=== PATIENT | male | born 1945 | race Caucasian/White ===

== ENCOUNTER → 2019-03-05 | Outpatient (CLI) | payer MEDICARE, OTHER ==
[2014-10-16 05:20] VITALS: BP 138/96
[~2019-03-05] MED LIST: AMOX1TAB61 PO; HYDR115S2 PO
== END | disposition home or self-care (01) ==
LOC: LAB 09:04
PROVIDERS: ATTEND Internal Medicine Cardiovascular Disease
DX: E78.5 Hyperlipidemia, unspecified (principal)
CPT/HCPCS: 80061

== ENCOUNTER → 2019-04-08 | Outpatient (CLI) | payer MEDICARE, OTHER ==
[2014-10-16 05:20] VITALS: BP 138/96
--- NOTE | 2019-04-08 16:01 | CARD ---
MR#: [id number] Date of Study: 04/08/2019 Ordering Physician: JOHNATHAN PHILLIPS, Referring Physician: JOHNATHAN PHILLIPS, Tech: Kimi Molina KALYN APPROVED REPORT EXAM: Two-dimensional and M-mode echocardiogram with Doppler and color Doppler. Other Information Quality : Good INDICATION Cardiac Disease: CAD Surgery/Intervention CABG: Date: 2011 2D DIMENSIONS RVDd3.6 (2.9-3.5cm)Left Atrium(2D)5.3 (1.6-4.0cm) IVSd1.2 (0.7-1.1cm)Aortic Root(2D)3.2 (2.0-3.7cm) LVDd4.8 (3.9-5.9cm)LVOT Diameter2.1 (1.8-2.4cm) PWd1.2 (0.7-1.1cm)LVDs3.3 (2.5-4.0cm) FS (%) 30.1 %SV60.6 ml LVEF(%)55.0 (>50%) Aortic Valve AoV Peak Javier.133.0cm/sAoV VTI29.1cm AO Peak GR.7.1mmHgLVOT Peak Javier.112.0cm/s LVOT VTI 26.01cmAO Mean GR.4mmHg TANA (VMAX)2.53yh9YWV (VTI)2.96cm2 Mitral Valve MV E Qpnwbyzx496.8cm/sMV DECEL AGBV100qq MV A Mmkhxowt41.4cm/sE/A Ratio2.2 Tricuspid Valve TR P. Nxryfvan006nk/sRAP OOJFPPXZ0zrCt TR Peak Gr.79hqDcCPFY66jjTu Pulmonary Vein S1 Qcqvragi99.6cm/sD2 Vczmhrvp09.9cm/s LEFT VENTRICLE The left ventricle is normal size. There is mild concentric left ventricular hypertrophy. The left ve ntricular systolic function is normal. The Ejection Fraction is 55-60%. There is normal LV segmental wall motion. Transmitral Doppler flow pattern is Grade II-pseudonormal filling dynamics. RIGHT VENTRICLE The right ventricle is normal size. The right ventricular systolic function is normal. ATRIA The left atrium is moderately dilated. The right atrium is mildly dilated. The interatrial septum is intact with no evidence for an atrial septal defect or patent foramen ovale as noted on 2-D or Dopple r imaging. AORTIC VALVE The aortic valve is calcified but opens well. Doppler and Color Flow revealed trace aortic regurgitat ion. There is no significant aortic valvular stenosis. MITRAL VALVE The mitral valve is mildly thickened but opens well. There is no evidence of mitral valve prolapse. T here is no mitral valve stenosis. Doppler and Color-flow revealed mild mitral regurgitation. TRICUSPID VALVE The tricuspid valve is normal in structure and function. Doppler and Color Flow revealed trace to mil d tricuspid regurgitation. There is moderate pulmonary hypertension. The PA pressure was estimated at 48 mmHg. There is no tricuspid valve stenosis. PULMONIC VALVE The pulmonary valve is normal in structure and function. Doppler and Color Flow revealed mild pulmoni c valvular regurgitation. There is no pulmonic valvular stenosis. GREAT VESSELS The aortic root is normal in size. The ascending aorta is normal in size. The IVC is normal in size a nd collapses >50% with inspiration. PERICARDIAL EFFUSION There is no evidence of significant pericardial effusion. Critical Notification Critical Value: No <Conclusion> The left ventricular systolic function is normal. The Ejection Fraction is 55-60%. There is normal LV segmental wall motion. The left atrium is moderately dilated. Mild mitral regurgitation. Trace to mild tricuspid regurgitation. The PA pressure was estimated at 48 mmHg. There is no evidence of significant pericardial effusion. Signed by : Joseph Richardson, Electronically Approved : 04/08/2019 16:00:12
--- NOTE | 2019-04-09 11:07 | RAD ---
MR#: [id number] Date of Study: 04/08/2019 Ordering Physician: JOHNATHAN PHILLIPS, Referring Physician: JOHNATHAN PHILLIPS, Tech: Priya Gallo, RACHAEL, RVT, RTR APPROVED REPORT Patient Location: OUT-PATIENT Laterality:Bilateral Indications Grayscale images of the right common carotid, external and internal carotid vessels reveals moderate plaque at the level of the carotid bulb. Spectral images and velocities are within normal limits over all suggestive 0 to less than 50% stenosis by velocity criteria. Normal ICA to CCA ratios are noted. There is likely greater than 50% stenosis involving the right external carotid artery based on veloci ty criteria. On the left there is no significant plaque noted. The velocities are within normal limits. Overall 0 to less than 50% stenosis. Critical Notification Critical Value: No <Conclusion> 1. No significant bilateral internal carotid disease. 2. Normal vertebral velocities. Signed by : Johnathan Phillips, Electronically Approved : 04/09/2019 11:07:11
== END | disposition home or self-care (01) ==
LOC: US 08:33
PROVIDERS: ATTEND Internal Medicine Cardiovascular Disease
DX: I08.8 Other rheumatic multiple valve diseases (principal); I27.20 Pulmonary hypertension, unspecified; I25.10 Atherosclerotic heart disease of native coronary artery without angina pectoris; I65.23 Occlusion and stenosis of bilateral carotid arteries
CPT/HCPCS: 93306; 93880

== ENCOUNTER 2019-07-20 07:09 | Inpatient (IN) | payer MEDICARE, OTHER ==
[~2019-07-20] VITALS: Ht 175.3 cm; Wt 93.1 kg
[2019-07-20] MEDS ORDERED: IV NORMAL SALINE 1,000ML 1,000 ML IV ONE (07:15)
[2019-07-20] MEDS ORDERED: ONDANSETRON PF 4 MG/2 ML VIAL. IV ONE (07:15)
[2019-07-20] MEDS ORDERED: MECLIZINE 12.5 MG TABLET. PO STA (07:15)
--- NOTE | 2019-07-20 07:23 | EKG ---
[address] [address] Test Date: 2019-07-20 Test Time: 07:20:45 Pat Name: RALF DUMONT Department: Room: Gender: M [employer] Operator: : 1945 Requested By: GOVIND STOUT Order Number: [id number] Reading MD: Measurements Intervals [place] Rate: 90 P: [place]: QRS: 39 QRSD: 100 T: 82 QT: 394 QTc: 486 Interpretive Statements IRREGULAR RHYTHM, NO P-WAVE FOUND QRS(T) CONTOUR ABNORMALITY CONSIDER ANTEROLATERAL MYOCARDIAL DAMAGE CONSIDER INFERIOR MYOCARDIAL DAMAGE PROLONGED QT POSSIBLY ABNORMAL ECG RI6.01 No previous ECG available for comparison
--- NOTE | 2019-07-20 08:03 | RAD ---
CT HEAD WO CONTRAST History: Dizziness. Headache. Comparison: None. Technique: Noncontrast CT imaging was performed of the head. Exposure: One or more of the following individualized dose reduction techniques were utilized for this examination: 1. Automated exposure control 2. Adjustment of the mA and/or kV according to patient size 3. Use of iterative reconstruction technique. Findings: No intracranial hemorrhage. No mass effect. No hydrocephalus. Mild brain parenchymal volume loss. Foci of decreased attenuation within the hemispheric white matter, most often due to chronic microvascular ischemia. Imaged orbits are unremarkable. Imaged paranasal sinuses and mastoid air cells are clear. Bilateral TMJ arthropathy. Impression: 1. No acute intracranial abnormality. 2. Brain parenchymal volume loss and sequela chronic microvascular ischemia. Electronically signed by: Abdifatah Mejia DO (07/20/2019 8:01 AM) [facility]
[2019-07-20 08:17] LABS: BASO % 1 % (0-3); EOS # 0.1 x10^3/uL (0.0-0.7); EOS % 1 % (0-3); HEMATOCRIT 41.6 % (39.0-53.0); HEMOGLOBIN 13.8 g/dL (13.0-17.5); LYMPH # 0.8 x10^3/uL (1.0-4.8); LYMPH % 11 % (24-48); MEAN CORPUSCULAR HEMOGLOBIN 31 pg (25-35); MEAN CORPUSCULAR HGB CONC 33 g/dL (31-37); MEAN CORPUSCULAR VOLUME 94 fL (79-100); MONO # 0.6 x10^3/uL (0.0-1.1); MONO % 8 % (0-9); NEUT % 80 % (31-73); PLATELET COUNT 174 x10^3/uL (140-400); RED BLOOD COUNT 4.42 x10^6/uL (4.30-5.70); RED CELL DISTRIBUTION WIDTH 14.8 % (11.5-14.5); WHITE BLOOD COUNT 7.5 x10^3/uL (4.0-11.0)
[2019-07-20 08:31] LABS: ALBUMIN 3.4 g/dL (3.4-5.0); CALCIUM 8.2 mg/dL (8.5-10.1); CREATININE 1.2 mg/dL (0.7-1.3); POTASSIUM 3.7 mmol/L (3.5-5.1); TOTAL PROTEIN 6.9 g/dL (6.4-8.2)
[2019-07-20] MEDS: IV NORMAL SALINE 1,000ML 1,000 ML IV SCH ×2 (09:17→22:03)
[2019-07-20] MEDS ORDERED: LOSA50TA86 PO (10:33)
[2019-07-20] MEDS ORDERED: UBID10CA5 PO (10:33)
[2019-07-20] MEDS ORDERED: METO50TA29 PO (10:33)
[2019-07-20] MEDS ORDERED: TAMS0.4C97 PO (10:33)
[2019-07-20] MEDS ORDERED: APIX2.5T PO (10:33)
[2019-07-20] MEDS ORDERED: DRON400T PO (10:33)
[2019-07-20] MEDS ORDERED: METF10007 PO (10:33)
--- NOTE | 2019-07-20 10:54 | NUR ---
NURSING NOTE: PATIENT ADMITTED TO [facility] ROOM 125 WITH DX OF VERTIGO ALONG WITH NAUSEA AND VOMITING. PATIENT ORIENTED TO ROOM AND UNIT ROUTINES. VISITING WITH FAMILY AT THIS TIME.
--- NOTE | 2019-07-20 11:05 | PHYS DOC ---
Past History Past Medical History: A-Fib, Diabetes, Heart Disease, Hypertension Past Surgical History: Coronary Bypass Surgery Alcohol Use: Occasionally Drug Use: None Adult General Chief Complaint Chief Complaint: DIZZY/LIGHT HEADED HPI HPI Patient is a 74 yo m p/w dizziness brought in by ambulance. Has had dizziness described as the room spinning since yesterday. He got a little bit better took a medication for nausea however then he was throwing up all last night denies any chest pain or headache just feels really off balance when he walked no double vision earlier and legs feel normal speech is normal. Really has not ever had this before his left ear does feel full like he can't really hear out of it Review of Systems Review of Systems Constitutional: Denies fever or chills [] Eyes: Denies change in visual acuity, redness, or eye pain [] HENTleft ear feels clogged Respiratory: Denies cough or shortness of breath [] Musculoskeletal: Denies back pain or joint pain [] Integument: Denies rash or skin lesions [] All other systems were reviewed and found to be within normal limits, except as documented in this note. Current Medications Current Medications Current Medications Medications (Trade) Dose Ordered Sig/Christie Start Time Stop Time Status Last Admin Dose Admin Meclizine HCl (Antivert) 25 mg 1X STAT 07/20/19 07:15 07/20/19 07:18 DC 07/20/19 07:29 25 MG Ondansetron HCl (Zofran) 2 mg 1X ONCE 07/20/19 07:15 07/20/19 07:18 DC 07/20/19 07:29 2 MG Sodium Chloride 1,000 ml @ 1,000 mls/hr 1X ONCE 07/20/19 07:15 07/20/19 08:14 DC 07/20/19 07:29 1,000 MLS/HR Allergies Allergies Allergies Coded Allergies Type Severity Reaction Last Updated Verified No Known Drug Allergies 07/20/19 No Physical Exam Physical Exam Constitutional: Well developed, well nourished, no acute distress, non-toxic appearance. [] HENT: Normocephalic, atraumatic, bilateral external ears normal, oropharynx moist, no oral exudates, nose normal. [] Eyes: PERRLA, EOMI, conjunctiva normal, no discharge. [] ears look normal tms clear, maybe trace fluid behind left tm Neck: Normal range of motion, no tenderness, supple, no stridor. [] Cardiovascular:Heart rate regular rhythm, no murmur [] Lungs & Thorax: Bilateral breath sounds clear to auscultation [] Abdomen: Bowel sounds normal, soft, no tenderness, no masses, no pulsatile masses. [] Skin: Warm, dry, no erythema, no rash. [] Back: No tenderness, no CVA tenderness. [] Extremities: No tenderness, no cyanosis, no clubbing, ROM intact, no edema. [] Neurologic: Alert and oriented X 3, normal motor function, normal sensory function, no focal deficits noted. [] fnf intact, gait ok but then after about ten steps has wave of vertigo nearly falls. no nystagmus. Psychologic: Affect normal, judgement normal, mood normal. [] Current Patient Data Vital Signs Vital Signs Date Time Temp Pulse Resp B/P (MAP) Pulse Ox O2 Delivery O2 Flow Rate FiO2 07/20/19 09:25 73 11 159/88 (111) 93 Room Air 07/20/19 07:13 98.0 Lab Results Laboratory Tests Test 07/20/19 08:01 White Blood Count 7.5 x10^3/uL (4.0-11.0) Red Blood Count 4.42 x10^6/uL (4.30-5.70) Hemoglobin 13.8 g/dL (13.0-17.5) Hematocrit 41.6 % (39.0-53.0) Mean Corpuscular Volume 94 fL (79-100) Mean Corpuscular Hemoglobin 31 pg (25-35) Mean Corpuscular Hemoglobin Concent 33 g/dL (31-37) Red Cell Distribution Width 14.8 % (11.5-14.5) H Platelet Count 174 x10^3/uL (140-400) Neutrophils (%) (Auto) 80 % (31-73) H Lymphocytes (%) (Auto) 11 % (24-48) L Monocytes (%) (Auto) 8 % (0-9) Eosinophils (%) (Auto) 1 % (0-3) Basophils (%) (Auto) 1 % (0-3) Neutrophils # (Auto) 6.0 x10^3uL (1.8-7.7) Lymphocytes # (Auto) 0.8 x10^3/uL (1.0-4.8) L Monocytes # (Auto) 0.6 x10^3/uL (0.0-1.1) Eosinophils # (Auto) 0.1 x10^3/uL (0.0-0.7) Basophils # (Auto) 0.0 x10^3/uL (0.0-0.2) Prothrombin Time 12.1 SEC (9.4-11.4) H Prothrombin Time INR 1.2 (0.9-1.1) H Sodium Level 140 mmol/L (136-145) Potassium Level 3.7 mmol/L (3.5-5.1) Chloride Level 106 mmol/L (98-107) Carbon Dioxide Level 22 mmol/L (21-32) Anion Gap 12 (6-14) Blood Urea Nitrogen 20 mg/dL (8-26) Creatinine 1.2 mg/dL (0.7-1.3) Estimated GFR (Cockcroft-Gault) 59.0 BUN/Creatinine Ratio 17 (6-20) Glucose Level 165 mg/dL (70-99) H Calcium Level 8.2 mg/dL (8.5-10.1) L Total Bilirubin 1.0 mg/dL (0.2-1.0) Aspartate Amino Transferase (AST) 20 U/L (15-37) Alanine Aminotransferase (ALT) 22 U/L (16-63) Alkaline Phosphatase 40 U/L (46-116) L Troponin I Quantitative 0.032 ng/mL (0-0.055) Total Protein 6.9 g/dL (6.4-8.2) Albumin 3.4 g/dL (3.4-5.0) Albumin/Globulin Ratio 1.0 (1.0-1.7) EKG EKG afib no ischemia intervals look ok otherwise no stemi[] Radiology/Procedures Radiology/Procedures [] Impressions: Technique: Noncontrast CT imaging was performed of the head. Exposure: One or more of the following individualized dose reduction techniques were utilized for this examination: 1. Automated exposure control 2. Adjustment of the mA and/or kV according to patient size 3. Use of iterative reconstruction technique. Findings: No intracranial hemorrhage. No mass effect. No hydrocephalus. Mild brain parenchymal volume loss. Foci of decreased attenuation within the hemispheric white matter, most often due to chronic microvascular ischemia. Imaged orbits are unremarkable. Imaged paranasal sinuses and mastoid air cells are clear. Bilateral TMJ arthropathy. Impression: 1. No acute intracranial abnormality. 2. Brain parenchymal volume loss and sequela chronic microvascular ischemia. Electronically signed by: Abdifatah Mejia DO (07/20/2019 8:01 AM) [facility] Course & Med Decision Making Course & Med Decision Making Pertinent Labs and Imaging studies reviewed. (See chart for details) []74-year-old male presenting with chief complaint of vertigo history of A. fib on Ed[place] Deisy check head CT negative acute for intracranial hemorrhage no objective signs of posterior fossa abnormality on the clinical examination we treated the patient symptomatically he was feeling better than when he came in but he was still too unsteady on his feet to go home based on my assessment as well as discussion with the daughter. Agreeable to admission discussed with sangita for admit Damon Disclaimer Dragon Disclaimer This electronic medical record was generated, in whole or in part, using a voice recognition dictation system. Departure Departure: Impression: Primary Impression: Vertigo Additional Impression: Dizziness Disposition: ADMITTED INPATIENT Condition: STABLE Referrals: PEDRO MERCEDES MD (PCP) Problem Qualifiers GOVIND STOUT MD Jul 20, 2019 11:05
[2019-07-20 13:30] VITALS: BP 193/105
--- NOTE | 2019-07-20 13:30 | HP ---
ADMIT DATE: 07/20/2019 HISTORY OF PRESENT ILLNESS: The patient is a 74-year-old male patient who came to the Emergency Room complaining of being dizzy and lightheaded. He was actually brought to the Emergency Room by ambulance. He had dizziness described as room spinning since yesterday. He got a little bit better, took a medication for nausea; however, then he was throwing up all last night. Denied any chest pain, headache. Denied any dizziness or lightheadedness. Denied any tingling, numbness or weakness. Denied any double vision. Denied any difficulty walking. He stated that [place] almost [place] and half, but has never had any experience of motion sickness. He feels that his ear does feel full like, he cannot really hear out of it. He was extensively investigated in the Emergency Room. His EKG showed that while he was in sinus rhythm, CT scan of the head without contrast showed that he has no intracranial hemorrhage, no mass effect, no hydrocephalus has mild brain parenchymal volume loss, foci of decreased attenuation within the hemispheric white matter, most of due to chronic microvascular ischemia. Images of the orbits are unremarkable. Images of paranasal sinuses and mastoid air cells are clear. Bilateral temporomandibular joint arthropathy. His lab work was essentially unremarkable and the patient was admitted for further evaluation and treatment and to consult the neurologist. PAST MEDICAL HISTORY: Significant for hypertension and diabetes. He has also atrial fibrillation, rate controlled. He has benign prostatic hypertrophy, prostate cancer and immature cataract. PAST SURGICAL HISTORY: Significant for coronary artery bypass graft surgery in 2012. He has esophagogastroduodenoscopy and colonoscopy. ALLERGIES: He has no known drug allergies. MEDICATIONS: He is currently on tamsulosin 0.4 mg at bedtime, apixaban 2.5 mg twice a day, Multaq 1 tablet twice a day, metoprolol succinate 50 mg daily, losartan potassium 50 mg daily, metformin 1000 mg twice a day, CoQ10 10 mg p.o. daily. FAMILY HISTORY: He has 1 older brother who is alive, has bilateral total knee arthroplasties. His father at the age of 85 because of myocardial infarction. Mother at the age of 88 because of dementia. SOCIAL HISTORY: He is and lives alone. Quit smoking in 1984. Drinks wine. Does not use any drugs. He has one daughter and one son. He is retired from and also as a civilian contractor. REVIEW OF SYSTEMS: The patient denied any blurring of vision. He does have cataract that is immature. Denied any glaucoma or macular degeneration. Denied any earache. He does have tinnitus, but no sensorineural deafness. Denied any nosebleeds, stuffy nose or postnasal drip. Denied any sore throat, sore tongue, toothache, hoarseness of voice, difficulty swallowing. He did have multiple episodes of nausea, vomiting, but denied any hematemesis, melena or hematochezia. Denied any dysuria, frequency or hematuria. Denied any chest pain, shortness of breath, orthopnea, paroxysmal nocturnal dyspnea. Denied any cough, phlegm or hemoptysis. Denied any chills, rigors or fever. Did complain of dizziness and lightheadedness. PHYSICAL EXAMINATION: GENERAL: On examining him, he was resting slightly propped up in bed, in no apparent respiratory distress. No pallor, jaundice, cyanosis, or thyromegaly. No jugular venous distension. No limb edema. VITAL SIGNS: His heart rate was 89, blood pressure was 176/112, temperature was 98, respiratory rate was 23, and oxygen saturation was 94%. HEAD, EYES, EARS, NOSE AND THROAT: Showed normocephalic, atraumatic. NECK: Supple. HEART: Showed normal first and second heart sounds. No gallop or murmur. CHEST: Shows central trachea, equal bilateral expansion, air entry, vesicular breath sounds. No crepitation or rhonchi. ABDOMEN: Distended, soft, nontender. NEUROLOGIC: He was awake, alert, responding appropriately. All his cranial nerves are intact. I could not elicit any nystagmus or diplopia. EXTREMITIES: He moves extremities without difficulty. I could not elicit any cerebellar dysfunction, although I did not do a Romberg's test and as he was somewhat dizzy. LABORATORY DATA: His lab work in the Emergency Room showed that his white cell count was 7500, hemoglobin 13.8, hematocrit 41.6, MCV 94 and platelet count of 174,000 with normal manual differential. His chemistry showed a serum sodium 140, potassium 3.7, chloride 106, bicarbonate 22, anion gap of 12, BUN 20, creatinine 1.2, estimated GFR was 59 mL per minute, his glucose 165, calcium was 8.2. Total bilirubin, AST, ALT, alkaline phosphatase were normal. Troponin was 0.032. Total protein was 6.9, albumin was 3.4. His prothrombin time was 12.1, INR of 1.2. The CT scan of the head showed that there is no acute intracranial abnormality, no mass effect or hydrocephalus. He has mild brain parenchymal volume loss, foci of decreased attenuation within the hemispheric white matter, most often due to chronic microvascular ischemia. Imaged orbits and paranasal sinuses as well as mastoid cells are clear. He has bilateral temporomandibular joint arthropathy. Plan is to obviously continue all his medications and we will arrange for him to have orthostatics and start him on meclizine and consult the neurologist. His troponin was slightly elevated, so I will do 2 more sets of cardiac enzymes and consult also the systems technologist. NELI CONTRERAS MD DR: ALEJANDRO/ana JOB#: [id number] / [id number]
[2019-07-20 13:33] VITALS: BP 193/102
[2019-07-20 13:34] VITALS: BP 182/101
[2019-07-20] MEDS: ONDANSETRON PF 4 MG/2 ML VIAL. IV PRN ×2 (13:43→18:42)
[2019-07-20] MEDS: LOSARTAN 50 MG TABLET. PO SCH (14:10)
[2019-07-20] MEDS: METOPROLOL SUCC 24HR ER 50 MG TAB.ER.24H. PO SCH (14:10)
[2019-07-20 16:39] VITALS: BP 185/95
[2019-07-20] MEDS: metFORMIN 500 MG TABLET PO SCH (17:40)
[2019-07-20 17:56] LABS: BILIRUBIN,URINE NEG (NEG); CLARITY,URINE CLEAR; COLOR,URINE YELLOW; GLUCOSE,URINE 100 mg/dL (NEG)
[2019-07-20 17:57] LABS: BACTERIA,URINE 0 /HPF (0-FEW); NITRITE,URINE NEG (NEG); RBC,URINE 0 /HPF (0-2); SQUAMOUS EPITHELIAL CELL,UR OCC /LPF; UROBILINOGEN,URINE 0.2 mg/dL (0.2 mg/dL); WBC,URINE OCC /HPF (0-4)
[2019-07-20 18:20] VITALS: BP 167/101
[2019-07-20] MEDS: MECLIZINE 12.5 MG TABLET. PO PRN ×2 (18:36→21:06)
[2019-07-20] MEDS: ACETAMINOPHEN 325 MG TABLET PO PRN (18:36)
[2019-07-20] MEDS: DRONEDARONE HCL 400 MG TABLET PO SCH (21:06)
[2019-07-20] MEDS: APIXABAN 2.5 MG TABLET PO SCH (21:06)
--- NOTE | 2019-07-20 21:11 | PDOC2 ---
CONSULT Date of Admission DATE: 07/20/19 TIME: 21:10 Reason for Consult: Atrial fibrillation Referring Physician: Dr. Sommers Chief Complaint Dizziness Source: Chart review, Patient Problem List Problems Medical Problems: (1) Dizziness Status: Acute (2) Vertigo Status: Acute History of Present Illness 74-year-old male presented complaining of dizziness that he described as room spinning since yesterday. He also complained of associated nausea and vomiting and intermittent episodes of palpitations. He denied any chest pain, orthopnea/PND or syncope. He has history of persistent atrial fibrillation and coronary artery disease and has been scheduled for [facility] guided cardioversion next week. Past Medical History Coronary artery disease s/p CABG Atrial fibrillation Hypertension Diabetes mellitus type 2 BPH Prostate cancer Past Surgical History Coronary artery bypass surgery in 2011 Family History Hypertension and coronary artery disease Social History Quit smoking in 1984, admitted to occasional intake of alcohol and denied any drug abuse Current Medications Current Medications Sodium Chloride 1,000 ml @ 1,000 mls/hr 1X ONCE IV Last administered on 07/20/19at 07:29; Start 07/20/19 at 07:15; Stop 07/20/19 at 08:14; Status DC Ondansetron HCl (Zofran) 2 mg 1X ONCE IV Last administered on 07/20/19at 07:29; Start 07/20/19 at 07:15; Stop 07/20/19 at 07:18; Status DC Meclizine HCl (Antivert) 25 mg 1X STAT PO Last administered on 07/20/19at 07:29; Start 07/20/19 at 07:15; Stop 07/20/19 at 07:18; Status DC Ondansetron HCl (Zofran) 4 mg PRN Q4HRS PRN IV NAUSEA/VOMITING Last administered on 07/20/19at 18:43; Start 07/20/19 at 09:30; Stop 07/21/19 at 09:29 Sodium Chloride 1,000 ml @ 75 mls/hr [id number] IV Last administered on 07/20/19at 09:24; Start 07/20/19 at 09:17; Stop 07/21/19 at 09:16 Apixaban (Eliquis) 2.5 mg BID PO Last administered on 07/20/19at 21:08; Start 07/20/19 at 21:00 Dronedarone (Multaq) 400 mg BID PO Last administered on 07/20/19at 21:08; Start 07/20/19 at 21:00 Losartan Potassium (Cozaar) 50 mg DAILY PO Last administered on 07/20/19at 14:10; Start 07/20/19 at 13:00 Metoprolol Succinate (Toprol Xl) 50 mg DAILY PO Last administered on 07/20/19at 14:10; Start 07/20/19 at 13:00 Tamsulosin HCl (Flomax) 0.4 mg DAILY PO ; Start 07/21/19 at 09:00 Metformin HCl (Glucophage) 500 mg BIDWMEALS PO Last administered on 07/20/19at 17:41; Start 07/20/19 at 17:00 Coenzyme Q10 (Coenzyme Q10) 50 mg DAILY PO ; Start 07/21/19 at 09:00 Meclizine HCl (Antivert) 25 mg PRN Q6HRS PRN PO DIZZINESS Last administered on 07/20/19at 21:08; Start 07/20/19 at 13:15 Acetaminophen (Tylenol) 650 mg PRN Q6HRS PRN PO PAIN Last administered on 07/20/19at 18:36; Start 07/20/19 at 18:30 Active Scripts Active Reported Metoprolol Succinate ( Xl ) (Metoprolol Succinate) 50 Mg Tab.er.24h 1 Tab PO DAILY Flomax (Tamsulosin Hcl) 0.4 Mg Cap.er.24h 1 Cap PO DAILY Eliquis (Apixaban) 2.5 Mg Tablet 2.5 Mg PO BID Multaq (Dronedarone Hcl) 400 Mg Tablet 1 Tab PO BID Co Q-10 (Ubidecarenone) 10 Mg Capsule 10 Mg PO DAILY Losartan Potassium (Losartan Potassium) 50 Mg Tablet 50 Mg PO DAILY Metformin Hcl 1,000 Mg Tablet 1 Tab PO BID Allergies: Coded Allergies: No Known Drug Allergies (Unverified , 07/20/19) PSYCHOLOGICAL ROS: No: Hallucinations Eyes: No: Loss of vision HEENT: No: Epistaxis Respiratory: No: Hemoptysis, Shortness of breath Cardiovascular: yes: Palpitations; No: Chest Pain Gastrointestinal: YES: Nausea, Vomiting Neurological: YES: Dizziness; No: Seizures Skin: No: Rash General: Alert, Oriented X3 HEENT: Atraumatic, PERRLA Lungs: Clear to auscultation Heart: Other (heart rate is irregular) Abdomen: Soft Extremities: No edema Psych/Mental Status: Mood NL VITALS Vital Signs Date Time Temp Pulse Resp B/P (MAP) Pulse Ox O2 Delivery O2 Flow Rate FiO2 07/20/19 21:08 67 167/101 07/20/19 18:20 97.9 18 94 Room Air Labs Laboratory Tests Test 07/20/19 08:01 07/20/19 13:14 07/20/19 14:19 07/20/19 16:42 White Blood Count 7.5 x10^3/uL (4.0-11.0) Red Blood Count 4.42 x10^6/uL (4.30-5.70) Hemoglobin 13.8 g/dL (13.0-17.5) Hematocrit 41.6 % (39.0-53.0) Mean Corpuscular Volume 94 fL (79-100) Mean Corpuscular Hemoglobin 31 pg (25-35) Mean Corpuscular Hemoglobin Concent 33 g/dL (31-37) Red Cell Distribution Width 14.8 % (11.5-14.5) Platelet Count 174 x10^3/uL (140-400) Neutrophils (%) (Auto) 80 % (31-73) Lymphocytes (%) (Auto) 11 % (24-48) Monocytes (%) (Auto) 8 % (0-9) Eosinophils (%) (Auto) 1 % (0-3) Basophils (%) (Auto) 1 % (0-3) Neutrophils # (Auto) 6.0 x10^3uL (1.8-7.7) Lymphocytes # (Auto) 0.8 x10^3/uL (1.0-4.8) Monocytes # (Auto) 0.6 x10^3/uL (0.0-1.1) Eosinophils # (Auto) 0.1 x10^3/uL (0.0-0.7) Basophils # (Auto) 0.0 x10^3/uL (0.0-0.2) Prothrombin Time 12.1 SEC (9.4-11.4) Prothromb Time International Ratio 1.2 (0.9-1.1) Sodium Level 140 mmol/L (136-145) Potassium Level 3.7 mmol/L (3.5-5.1) Chloride Level 106 mmol/L (98-107) Carbon Dioxide Level 22 mmol/L (21-32) Anion Gap 12 (6-14) Blood Urea Nitrogen 20 mg/dL (8-26) Creatinine 1.2 mg/dL (0.7-1.3) Estimated GFR (Cockcroft-Gault) 59.0 BUN/Creatinine Ratio 17 (6-20) Glucose Level 165 mg/dL (70-99) Calcium Level 8.2 mg/dL (8.5-10.1) Total Bilirubin 1.0 mg/dL (0.2-1.0) Aspartate Amino Transf (AST/SGOT) 20 U/L (15-37) Alanine Aminotransferase (ALT/SGPT) 22 U/L (16-63) Alkaline Phosphatase 40 U/L (46-116) Troponin I Quantitative 0.032 ng/mL (0-0.055) 0.018 ng/mL (0-0.055) 0.019 ng/mL (0-0.055) Total Protein 6.9 g/dL (6.4-8.2) Albumin 3.4 g/dL (3.4-5.0) Albumin/Globulin Ratio 1.0 (1.0-1.7) Urine Collection Type Unknown Urine Color Yellow Urine Clarity Clear Urine pH 5.5 Urine Specific Drumore 1.025 Urine Protein Neg (NEG-TRACE) Urine Glucose (UA) 100 mg/dL (NEG) Urine Ketones (Stick) 15 mg/dL (NEG) Urine Blood Neg (NEG) Urine Nitrite Neg (NEG) Urine Bilirubin Neg (NEG) Urine Urobilinogen Dipstick 0.2 mg/dL (0.2 mg/dL) Urine Leukocyte Esterase Neg (NEG) Urine RBC 0 /HPF (0-2) Urine WBC Occ /HPF (0-4) Urine Squamous Epithelial Cells Occ /LPF Urine Bacteria 0 /HPF (0-FEW) Urine Mucus Slight /LPF Assessment/Plan 1. Dizziness, nausea and vomiting consistent with vertigo. Continue current management per IM 2. Persistent atrial fibrillation, rate well-controlled. Recent 2-D echo showed LVEF 55-60%. Continue current medications including eliquis and multaq. He is currently scheduled for [facility] guided cardioversion by. 3. Coronary artery disease s/p CABG, clinically stable and chest pain-free. BNP level slightly elevated but patient does not have any overt signs of CHF. Continue current secondary prevention measures. 4. Accelerated hypertension: Resume home medications and titrate for better control Thank you for your consultation DARREN PHILLIPS MD Jul 20, 2019 21:11
[2019-07-20 22:24] VITALS: BP 188/102
[2019-07-20] MEDS ORDERED: amLODIPine BESYLATE 5 MG TABLET PO ONE (22:30)
[2019-07-21 02:32] VITALS: BP 160/75
--- NOTE | 2019-07-21 06:14 | CONS ---
DATE OF CONSULTATION: NEUROLOGY CONSULT REFERRING PHYSICIAN: Dr. Sommers. REASON FOR CONSULTATION: Severe dizziness. HISTORY OF PRESENT ILLNESS: This is a 74-year-old right-handed very pleasant male who was admitted through Emergency Room after he presented with 1-day history of frequent dizzy spell described as "spinning." The dizzy spells usually aggravated by changing body positions quickly as standing up from sitting to standing positions or by turning his head quickly to any directions. The patient stated his dizzy spell started one day prior to this admission and associated with nausea. He denies vomiting, chest pain, shortness of breath or palpitation, dysarthria, dysphagia, weakness or paresthesia; however, he complains of intermittent pain confined to the right shoulder and sometimes associated with strange feeling into the forearms. He denies visual disturbances, weakness of the lower extremities, bowel or bladder dysfunctions. The patient denies any recent head injuries or fall or changes of his mental status. Initial nonenhanced head CT scan revealed no evidence of acute intracranial process, but shows chronic small vessel ischemic changes with generalized atrophy. PAST MEDICAL HISTORY: Quite significant for ventricular rate controlled atrial fibrillation, benign prostate hypertrophy, hypertension, diabetes mellitus type 2, long history of weakness of the right eyelid and history of right cornea damage and cataract. There is history of prostate cancer as well, hearing loss on the left side. PAST SURGICAL HISTORY: Significant for coronary artery bypass graft in 2011. SOCIAL HISTORY: The patient is . He lives by himself. He denies smoking and he quit many years ago. He drinks wine, but he denies illegal drug use. He has 1 son and 1 daughter. He retired from . CURRENT HOME MEDICATIONS: Coenzyme Q10, Flomax 0.4 mg daily, Multaq 400 mg twice daily, Eliquis 2.5 mg twice daily, Tylenol 650 mg q. 6 hours p.r.n. for pain, metformin 500 mg b.i.d., metoprolol XL 50 mg daily, losartan 50 mg daily and current hospital medications, meclizine 25 mg q. 6 hours p.r.n. and Zofran 4 mg IV q. 4 hours p.r.n. for nausea and vomiting. ALLERGIES: No known drug allergies. REVIEW OF SYSTEMS: A 10-point review of system was performed as mentioned above in history of present illness. However, the patient did complain of strange feeling in the left ear. PHYSICAL EXAMINATION: GENERAL: Well-developed, well-nourished male, not in acute distress. He weighs 90.8 kilos. VITAL SIGNS: Blood pressure 167/101, respiratory rate 18, pulse 67 and regular, temperature 97.9, oxygen saturation 94% on room air. HEENT: Normocephalic, atraumatic, otherwise unremarkable. NECK: Supple. Negative for carotid bruit, lymphadenopathy, thyromegaly or JVD. LUNGS: Clear to A and P. CARDIOVASCULAR: Regular rhythm, normal S1, S2. ABDOMEN: Soft. Bowel sounds positive. EXTREMITIES: Negative for cyanosis, clubbing or edema. NEUROLOGICAL EXAM: Mental Status: The patient is alert and oriented x 3. Speech is fluent. There is no language dysfunction. Memory, judgment, and abstracting thinking are normal. The patient denies hallucination or delusion. CRANIAL NERVES: Visual guerrero are full. The pupils are reactive to light and accommodation. The extraocular movements are intact. There is no nystagmus. There is no facial motor or sensory deficit. Diminished hearing on the left side compared to that on the right side. The palate is elevated symmetrically. Sternocleidomastoid muscles are powerful bilaterally. The patient shrugs his shoulders symmetrically, protrudes his tongue in the midline without fasciculation or atrophy. There is a weakness of the right upper eyelid compared to that on the left side. NEUROLOGIC: Motor examination: No focal muscle bulk was seen. The tone is normal. The strength is 5/5 throughout. Sensory examination revealed normal pinprick, light touch, vibratory and position senses. Deep tendon reflexes were asymmetric and hypoactive with absent Achilles responses. Gait: Gait not tested as the patient has severe vertigo. LABORATORY DATA: CBC revealed white blood cells of 7.5 thousand, hemoglobin 13.8, hematocrit 41.6, platelet count 174,000. Chemistry revealed sodium of 140, potassium 3.7, chloride 106, CO2 of 22, BUN 20, creatinine 1.2, glucose 165, calcium 8.2 and liver enzymes are normal. Troponin level in the 3 sitting did not show any worsening of the number. Urinalysis is negative for urinary tract infections and EKG shows atrial fibrillation with controlled ventricular rate. DIAGNOSTIC DATA: A nonenhanced head CT scan as described above in the history of present illness consistent with chronic small vessel ischemic changes, otherwise unremarkable. IMPRESSION: 1. Acute onset of vertigo described as spinning aggravated by changing body positions or turning head quickly to any directions may represent paroxysmal benign positional vertigo versus vestibulopathy. 2. Multiple medical problems include coronary artery disease, status post coronary artery bypass graft and ongoing atrial fibrillation with controlled ventricular response, diabetes mellitus type 2, hypertension, left side hearing loss. RECOMMENDATIONS: 1. Physical therapy with vestibular exercise. 2. Continue with meclizine 25 mg p.r.n. for vertigo. 3. Continue with current management and care initiated by Dr. Sommers. M Zuleika FIGUEROA MD DR: LISA/ana JOB#: [id number] / [id number]
[2019-07-21 06:26] VITALS: BP 170/89
[2019-07-21] MEDS: metFORMIN 500 MG TABLET PO SCH ×2 (07:42→16:57)
[2019-07-21] MEDS: METOPROLOL SUCC 24HR ER 50 MG TAB.ER.24H. PO SCH (07:42)
[2019-07-21] MEDS: UBIDECARENONE 50 MG CAPSULE. PO SCH (07:42)
[2019-07-21] MEDS: APIXABAN 2.5 MG TABLET PO SCH ×2 (07:43→20:46)
[2019-07-21] MEDS: DRONEDARONE HCL 400 MG TABLET PO SCH ×2 (07:43→20:46)
[2019-07-21] MEDS: LOSARTAN 50 MG TABLET. PO SCH (07:46)
[2019-07-21] MEDS: TAMSULOSIN 0.4 MG CAP.ER.24H. PO SCH (09:45)
[2019-07-21] MEDS ORDERED: metFORMIN 500 MG TABLET PO ONE (09:45)
[2019-07-21] MEDS: ACETAMINOPHEN 325 MG TABLET PO PRN (11:15)
[2019-07-21 11:23] VITALS: BP 149/82
[2019-07-21 12:20] LABS: BASO # 0.1 x10^3/uL (0.0-0.2); BASO % 1 % (0-3); EOS # 0.1 x10^3/uL (0.0-0.7); EOS % 1 % (0-3); HEMATOCRIT 44.2 % (39.0-53.0); HEMOGLOBIN 14.6 g/dL (13.0-17.5); LYMPH # 0.8 x10^3/uL (1.0-4.8); LYMPH % 9 % (24-48); MEAN CORPUSCULAR HEMOGLOBIN 31 pg (25-35); MEAN CORPUSCULAR HGB CONC 33 g/dL (31-37); MEAN CORPUSCULAR VOLUME 95 fL (79-100); MONO # 0.6 x10^3/uL (0.0-1.1); MONO % 7 % (0-9); NEUT # 7.6 x10^3uL (1.8-7.7); NEUT % 83 % (31-73); PLATELET COUNT 174 x10^3/uL (140-400); RED BLOOD COUNT 4.66 x10^6/uL (4.30-5.70); RED CELL DISTRIBUTION WIDTH 14.6 % (11.5-14.5); WHITE BLOOD COUNT 9.2 x10^3/uL (4.0-11.0)
[2019-07-21 12:25] LABS: ALBUMIN 3.5 g/dL (3.4-5.0); CALCIUM 8.2 mg/dL (8.5-10.1); CREATININE 1.1 mg/dL (0.7-1.3); GFR 65.3; POTASSIUM 4.2 mmol/L (3.5-5.1); TOTAL BILIRUBIN 1.4 mg/dL (0.2-1.0); TOTAL PROTEIN 6.9 g/dL (6.4-8.2)
[2019-07-21 15:36] VITALS: BP 150/75
--- NOTE | 2019-07-21 16:54 | RAD ---
CHEST AP ONLY History: Shortness of breath. Comparison: October 16, 2014 Findings: Mild interstitial thickening and vascular engorgement. No pleural effusion. Portable technique accentuates cardiac size. Prior median sternotomy. No pneumothorax. Impression: 1. Bilateral interstitial thickening and vascular engorgement, may indicate early pulmonary edema. Electronically signed by: Abdifatah Mejia DO (07/21/2019 4:51 PM) [facility]
[2019-07-21 18:38] VITALS: BP 161/80
--- NOTE | 2019-07-21 22:14 | PN ---
DATE: 07/21/2019 SUBJECTIVE: The patient denies any new neurological complaints; however, he stated his dizzy spell has been less frequent and less intense, but when he stood up this morning, he felt short of breath and he has had a dry cough. He denies chest pain, nausea, vomiting, or diaphoresis. OBJECTIVE: GENERAL: Well-developed, well-nourished male in no acute distress. VITAL SIGNS: Blood pressure 170/87, respiratory rate 22, pulse is 84, oxygen saturation is 90% on 3 liters by nasal cannula. HEENT: Normocephalic, atraumatic, otherwise unremarkable. NECK: Supple. Negative for carotid bruit, lymphadenopathy or thyromegaly. LUNGS: Clear to A and P. No wheezing or rales. CARDIOVASCULAR: Irregularly irregular rhythm, normal S1, S2. ABDOMEN: Soft. Bowel sounds positive. EXTREMITIES: Negative for cyanosis, clubbing, or pitting edema. NEUROLOGICAL EXAM: Normal mental status and intact cranial nerves. There is no nystagmus except for hearing loss on the left side. Motor Examination: No focal motor or sensory deficit. Deep tendon reflexes were symmetric and hypoactive with absent Achilles responses. Gait not tested at this time. IMPRESSION: 1. Acute onset of dizziness, acute onset of vertigo, probably represent paroxysmal benign positional vertigo versus vestibulopathy. 2. Atrial fibrillation with controlled ventricular response. 3. Shortness of breath with dry cough. 4. Multiple medical problems include hypertension, hyperlipidemia, diabetes mellitus, coronary artery disease, status post coronary artery bypass graft. RECOMMENDATIONS: 1. Continue with current management initiated by Dr. Sommers. 2. Physical therapy and trial for vestibular exercise. 3. To obtain chest x-ray. M Zuleika FIGUEROA MD DR: LISA/ana JOB#: [id number] / [id number]
[2019-07-22 01:02] VITALS: BP 132/71
--- NOTE | 2019-07-22 05:18 | PN ---
DATE: 07/21/2019 SUBJECTIVE: The patient is resting, slightly propped up in bed, very sleepy and lethargic. The nursing staff said he was clammy and hypoxic; however, the patient himself denied any chest pain or shortness of breath. Denied any headache, has no more nausea. PHYSICAL EXAMINATION: GENERAL: When I examined him, he looked well and was clearly in no apparent respiratory distress. No pallor, jaundice, cyanosis, or thyromegaly. No jugular venous distension. No lower limb edema. VITAL SIGNS: His heart rate was 76, blood pressure is 149/82, temperature was 99.7, respiratory rate was 22 and oxygen saturation was 91% on 3 liters of oxygen by nasal cannula. HEAD, EYES, EARS, NOSE AND THROAT: Showed normocephalic, atraumatic. NECK: Supple. HEART: Showed normal first and second heart sounds with no gallop or murmur. CHEST: Shows central trachea, equal bilateral expansion, air entry, vesicular sounds with bilateral basal crepitation. I could not appreciate any rhonchi. ABDOMEN: Distended, soft, nontender. No guarding or rigidity. No organomegaly. All hernial orifices intact. Bowel sounds normal. NEUROLOGIC: He was somewhat lethargic, but arousable. All his cranial nerves are intact. He moves extremities without difficulty, although he is mostly bedbound. His intake over the last 24 hours was 3550, output was 1425. LABORATORY DATA: He has no lab work done this morning. He was evaluated by the wrecking supervisor as well as the neurologist. Dr. Jarvis felt that this is benign positional vertigo versus vestibuloplasty. PLAN: Given the change in his mental status and hypoxia, I will repeat all his lab work stat including CBC, CMP, BMP, D-dimer. Do a chest x-ray. I have consulted physical therapy. We will advance his diet and decide on further management accordingly. NELI CONTRERAS MD DR: ALEJANDRO/ana JOB#: [id number] / [id number]
[2019-07-22 05:36] VITALS: BP 154/83
[2019-07-22] MEDS: LOSARTAN 50 MG TABLET. PO SCH (08:35)
[2019-07-22] MEDS: metFORMIN 500 MG TABLET PO SCH (08:35)
[2019-07-22] MEDS: TAMSULOSIN 0.4 MG CAP.ER.24H. PO SCH (08:35)
[2019-07-22] MEDS: METOPROLOL SUCC 24HR ER 50 MG TAB.ER.24H. PO SCH (08:35)
[2019-07-22] MEDS: UBIDECARENONE 50 MG CAPSULE. PO SCH (08:36)
[2019-07-22] MEDS: APIXABAN 2.5 MG TABLET PO SCH (08:36)
[2019-07-22] MEDS: DRONEDARONE HCL 400 MG TABLET PO SCH (08:36)
[2019-07-22 11:00] VITALS: BP 144/82
[2019-07-22] MEDS ORDERED: FUROSEMIDE 20 MG/2 ML VIAL IVP ONE (13:30)
--- NOTE | 2019-07-22 14:54 | NUR ---
PT TRANSFERRED TO [facility] ROM 660 FOR MRI NEUROLOGY AND CARDIOLOGY. REPORT CALLED TO NURSE AT [facility]. ALL LABS AND REPORTS SENT WITH PT. PT IS STABLE AT TIME OF TRANSFER.
--- NOTE | 2019-07-22 23:35 | PN ---
DATE: SUBJECTIVE: The patient denies any new neurological complaints; however, he continues to have shortness of breath, but no chest pain or palpitation. The patient stated his dizziness has been less frequent and less intense. He is able to get up and walk without assistance and without dizziness as well. Chest x-ray from yesterday revealed evidence of bilateral interstitial thickening and possible indicate early pulmonary edema. OBJECTIVE: GENERAL: Well-developed, well-nourished male, not in acute distress. VITAL SIGNS: Blood pressure 145/83, respiratory rate 20, pulse is 79 and irregular, temperature 97.7, oxygen saturation is 93% on 3 liters by nasal cannula. HEENT: Normocephalic, atraumatic, otherwise unremarkable. I examined his left ear today and did not reveal any significant abnormalities. NECK: Supple. Negative for carotid bruit, lymphadenopathy, thyromegaly or JVD. LUNGS: Clear to A and P; however, there is a very mild palpitation on the bases. No rhonchi today. CARDIOVASCULAR: Regular rhythm. Normal S1, S2. ABDOMEN: Soft. Bowel sounds positive. EXTREMITIES: Negative for cyanosis, clubbing or pitting edema. NEUROLOGICAL EXAM: Normal mental status and intact cranial nerves except for left hearing loss. There is no nystagmus. No focal motor or sensory deficit. Deep tendon reflexes were symmetric and hypoactive with absent Achilles responses. Gait: The stance is more steady. IMPRESSION: 1. Acute vertigo -- improved, probably represent paroxysmal positional vertigo versus vestibulopathy. 2. Shortness of breath with abnormal chest x-ray. 3. Multiple medical problems include atrial fibrillation, hypertension, hyperlipidemia, diabetes mellitus, coronary artery disease status post coronary artery bypass graft. 4. Left hearing loss. RECOMMENDATIONS: 1. Continue with current medical care and neurological recommendations. 2. The patient needs to follow up with ENT and specialist and has hearing test. M Zuleika FIGUEROA MD DR: LISA/ana JOB#: [id number] / [id number]
--- NOTE | 2019-07-23 04:17 | DS ---
DATE OF DISCHARGE: 07/22/2019 HOSPITAL COURSE: The patient is a 74-year-old male patient who was admitted to the Emergency Room with a complaint of being dizzy and lightheaded. He was brought to the Emergency Room by ambulance. He had dizziness described as room spinning, since the day before admission, he got a little bit better, took medication for nausea; however, he was throwing up all the night before admission. Denied any chest pain, headache. Denied any tingling, numbness or weakness. Denied any double vision. Denied any difficulty walking. 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 He feels that his ears does feel full and cannot really hear out of it. He was extensively investigated in the Emergency Room. His EKG showed that he was in sinus rhythm. CT scan of the head without contrast showed that he has no intracranial hemorrhage, no mass effect, hydrocephalus, mild parenchymal volume loss. No foci of decreased attenuation within the hemispheric white matter, most due to microvascular ischemia. Images of the orbits are unremarkable as well as the images of paranasal sinuses and mastoid air cells; bilateral temporomandibular joint arthropathy. His lab work was essentially unremarkable. He was admitted for further evaluation and to consult the neurologist. He was seen by Dr. Jarvis and his impression is that the patient was diagnosed with paroxysmal benign positional vertigo versus vestibulopathy. He was started on meclizine. However, the patient's condition actually worsened. He became more short of breath, hypoxic and also very unsteady gait. His chest x-ray showed that he has bilateral interstitial thickening and vascular engorgement, may indicate early pulmonary edema. His oxygen drops down to less than 90 on exertion and without assist he would be at a very high fall risk because he is very unsteady and veers towards the left side and given that he has not really has worsened, I gave him 20 mg of IV Lasix and arranged for him to be transferred to [facility] to do an MRI and to consult the neurologist there and perhaps even the neurosurgeon if necessary. PHYSICAL EXAMINATION: GENERAL: When I saw him this afternoon, he was sitting slightly propped up in bed, in no apparent respiratory distress. No pallor, jaundice, cyanosis or thyromegaly. No jugular venous distention. No limb edema. VITAL SIGNS: His heart rate was 79, blood pressure was 154/83, temperature was 97.7, respiratory rate 20, and oxygen saturation was 93% on 3 liters of oxygen. HEAD, EYES, EARS, NOSE AND THROAT: Showed normocephalic, atraumatic. NECK: Supple. HEART: Showed normal first and second heart sounds, with no gallop or murmur. CHEST: Clear to auscultation. No crepitation or rhonchi. ABDOMEN: Distended, soft, nontender. No guarding or rigidity. No organomegaly. All hernial orifice intact. Bowel sounds normal. NEUROLOGIC: He was somewhat lethargic, but arousable. All cranial nerves are intact. He moves extremities without difficulty, however, when he walked, he is very unsteady and tends to veer to the left side. His intake over the last 24 hours was 3550, output was 1425. LABORATORY WORK: Most recent lab work showed a serum sodium 141, potassium 4.2, chloride 106, bicarbonate 25, anion gap of 10, BUN 15, creatinine 1.1, estimated GFR was 65 mL per minute, his glucose was 140, calcium was 8.2. Total bilirubin is 1.4. AST, ALT, alkaline phosphatase were normal. His beta natriuretic peptide was 2664. His total protein was 6.9, albumin was 3.5. Serum triglycerides were 72, total cholesterol 132, LDL was 74, VLDL was 14 and ratio was 44, HDL cholesterol was 44 and the ratio was 3. His prothrombin time was 12.1, INR 1.2. D-dimer was 0.25. Urinalysis was essentially unremarkable. DISCHARGE MEDICATIONS: The patient was transferred to [facility] to continue on apixaban 2.5 mg twice a day, Multaq 400 mg twice a day, losartan potassium 50 mg once a day, metformin 1000 mg p.o. b.i.d., metoprolol succinate 50 mg once a day, tamsulosin 0.4 mg daily and he is also on CoQ10 10 mg daily. 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 Other medical problems include hypertension, type 2 diabetes, atrial fibrillation, rate controlled, benign prostatic hypertrophy, prostate cancer and bilateral cataract. NELI CONTRERAS MD DR: ALEJANDRO/ana JOB#: [id number] / [id number]
== END 2019-07-22 14:35 | disposition short-term general hospital (02) | DRG 149 ==
LOC: ER 07:09 → 1 SOUTH 09:15
PROVIDERS: ADMIT Internal Medicine; ATTEND Internal Medicine
DX: H81.10 Benign paroxysmal vertigo, unspecified ear (principal); I48.1 Persistent atrial fibrillation; H81.20 Vestibular neuronitis, unspecified ear; I10 Essential (primary) hypertension; E78.5 Hyperlipidemia, unspecified; N40.0 Benign prostatic hyperplasia without lower urinary tract symptoms; I25.10 Atherosclerotic heart disease of native coronary artery without angina pectoris; H91.92 Unspecified hearing loss, left ear; M12.9 Arthropathy, unspecified; R09.02 Hypoxemia; Z95.1 Presence of aortocoronary bypass graft; Z87.891 Personal history of nicotine dependence; Z85.46 Personal history of malignant neoplasm of prostate; Z79.899 Other long term (current) drug therapy; Z79.01 Long term (current) use of anticoagulants; Z82.49 Family history of ischemic heart disease and other diseases of the circulatory system
CPT/HCPCS: 36415; 70450; 71045; 80053; 80061; 81001; 83880; 84484; 85025; 85379; 85610; 93005; J2405; J8597; 97530; J7030

== ENCOUNTER → 2020-03-10 | Outpatient (CLI) | payer MEDICARE, OTHER ==
[~2020-03-10] MED LIST changes: +APIX2.5T PO; +DRON400T PO; +LOSA50TA86 PO; +METF10007 PO; +METO50TA29 PO; +TAMS0.4C97 PO; +UBID10CA5 PO
== END | disposition home or self-care (01) ==
LOC: LAB 12:09
PROVIDERS: ATTEND Radiology Radiation Oncology
DX: C61 Malignant neoplasm of prostate (principal)
CPT/HCPCS: 84153; G0103

== ENCOUNTER → 2020-09-16 | Outpatient (CLI) | payer MEDICARE, OTHER | LOC: LAB 10:06 | PROVIDERS: ATTEND Radiology Radiation Oncology | DX: Z12.5 Encounter for screening for malignant neoplasm of prostate (principal); R97.20 Elevated prostate specific antigen [PSA] | CPT/HCPCS: G0103 ==

== ENCOUNTER → 2021-01-25 | Outpatient (CLI) | payer MEDICARE, OTHER | LOC: LAB 14:12 | PROVIDERS: ATTEND Internal Medicine Cardiovascular Disease | DX: E78.5 Hyperlipidemia, unspecified (principal) | CPT/HCPCS: 80061 ==

== ENCOUNTER → 2021-03-08 | Outpatient (CLI) | payer MEDICARE, OTHER ==
[~2021-03-08] MED LIST changes: -DRON400T PO; +DRON400T6 PO
--- NOTE | 2021-03-08 12:20 | RAD ---
EXAM: Cervical spine, 3 views. HISTORY: Fusion. COMPARISON: None. FINDINGS: 3 views of the cervical spine are obtained. There is instrumented intraspinal fusion and in terbody fusion at C6-C7. The anterior aspect of the interbody fusion device appears to be positioned slightly anterior to the vertebral column. There is no convincing lucency surrounding the anterior winter dy screws. There is no listhesis. The nonfused disc spaces are preserved. There is minimal multilevel endplate remodeling. There is right greater than left multilevel facet arthropathy. There are incide ntal median sternotomy wires, the proximal most of which is fractured but nondisplaced. There is calc ified atherosclerotic plaque involving the carotid bifurcations. IMPRESSION: 1. Instrumented anterior spinal fusion and interbody fusion, described in detail above. 2. Multilevel right greater than left facet arthropathy and minimal multilevel endplate remodeling. Electronically signed by: Meg Mahmood MD (03/08/2021 12:18 PM) [id number]
== END ==
LOC: RAD 11:23
PROVIDERS: ATTEND Neurological Surgery
DX: M47.812 Spondylosis without myelopathy or radiculopathy, cervical region (principal); Z98.1 Arthrodesis status
CPT/HCPCS: 72040